=== PATIENT | male | born 1975 | race Caucasian/White ===

== ENCOUNTER 2022-01-26 11:51 | Emergency (ER) | payer OTHER ==
[2022-01-26 12:52] LABS: Absolute Lymphocytes (CBC) 1.4 K/uL (0.7-4.9); Lymphocytes % 22.2 % (15.3-44.8); MCV 89.7 fL (80-100); MPV 8.5 fL (7.6-11.3); RBC Red Blood Cell Count 5.35 M/uL (4.33-5.43)
[2022-01-26 13:11] LABS: Potassium 3.6 mmol/L (3.5-5.1); Troponin High Sensitivity 5.1 pg/mL (<58.9)
[2022-01-26 13:28] LABS: SARS-COV-2 RT PCR NEGATIVE (NEGATIVE)
--- NOTE | 2022-01-26 13:34 | RAD REPORT ---
EXAM DESCRIPTION: RAD - Chest Single View - 01/26/2022 1:14 pm CLINICAL HISTORY: CHEST PAIN COMPARISON: CHEST PA AND LAT 2 VIEW dated 09/17/2008 FINDINGS: Lines: None. Lungs: No evidence of edema or pneumonia. Pleural: No significant pleural effusions or pneumothorax. Cardiac: The heart size is within normal limits. Mediastinum: Within normal limits. Bones: No acute fractures. Other: None IMPRESSION: No acute cardiopulmonary disease.
--- NOTE | 2022-01-26 16:45 | ER ---
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 12:15 Coronavirus screen: Vaccine status: Patient reports receiving the 2nd dose of the covid kb3 vaccine. Client denies travel out of the [place] in the last 14 days. Ebola Screen: Patient negative for fever greater than or equal to 101.5 degrees Fahrenheit, and additional compatible Ebola Virus Disease symptoms Patient denies exposure to infectious person. Patient denies travel to an Ebola-affected area in the 21 days before illness onset. Initial Sepsis Screen: Does the patient meet any 2 criteria? No. Patient's initial sepsis screen is negative. Does the patient have a suspected source of infection? No. Patient's initial sepsis screen is negative. Risk Assessment: Do you want to hurt yourself or someone else? Patient reports no desire to harm self or others. Onset of symptoms was January 26, 2022 at 11:45. 12:15 Method Of Arrival: Ambulatory kb3 12:15 Acuity: WAYNE 3 kb3 Triage Assessment: 12:31 General: Appears in no apparent distress. Behavior is calm, cooperative. Pain: kb3 Complains of pain in anterior aspect of left upper chest and left breast Pain does not radiate. Pain currently is 5 out of 10 on a pain scale. Quality of pain is described as pressure. Historical: - Allergies: 14:16 No Known Allergies; hb - Home Meds: 12:31 Unable to obtain [Active]; kb3 - PMHx: 12:31 Hypercholesterolemia; kb3 - PSHx: 12:31 None; kb3 - Immunization history:: Adult Immunizations up to date, Client reports receiving the 2nd dose of the Covid vaccine, Last tetanus immunization: up to date. - Social history:: Smoking status: Patient denies any tobacco usage or history of. Patient uses. Screenin:21 Abuse screen: Denies threats or abuse. Denies injuries from another. Nutritional hb screening: No deficits noted. Tuberculosis screening: No symptoms or risk factors identified. Fall Risk None identified. Assessment: 12:21 General: Appears in no apparent distress. Behavior is calm, cooperative. Pain: Pain hb currently is 3 out of 10 on a pain scale. at worst was 9 out of 10 on a pain scale. Neuro: Level of Consciousness is awake, alert, obeys commands, Oriented to person, place, time, situation. Cardiovascular: Patient's skin is warm and dry. Rhythm is sinus tachycardia. Respiratory: Respiratory effort is even, unlabored, Respiratory pattern is regular, symmetrical. GI: No signs and/or symptoms were reported involving the gastrointestinal system. : No signs and/or symptoms were reported regarding the genitourinary system. EENT: No signs and/or symptoms were reported regarding the EENT system. Derm: Skin is pink, warm \T\ dry. Musculoskeletal: No signs and/or symptoms reported regarding the musculoskeletal system. 13:18 Reassessment: Patient appears in no apparent distress at this time. Patient and/or hb family updated on plan of care and expected duration. Pain level reassessed. Patient is alert, oriented x 3, equal unlabored respirations, skin warm/dry/pink. 14:15 Reassessment: Patient appears in no apparent distress at this time. Patient and/or hb family updated on plan of care and expected duration. Pain level reassessed. Patient is alert, oriented x 3, equal unlabored respirations, skin warm/dry/pink. 15:31 Reassessment: Patient appears in no apparent distress at this time. Patient and/or hb family updated on plan of care and expected duration. Pain level reassessed. Patient is alert, oriented x 3, equal unlabored respirations, skin warm/dry/pink. 16:40 Reassessment: Patient appears in no apparent distress at this time. Patient and/or hb family updated on plan of care and expected duration. Pain level reassessed. Patient is alert, oriented x 3, equal unlabored respirations, skin warm/dry/pink. Patient states feeling better. Patient states symptoms have improved. Vital Signs: 12:15 BP 170 / 101; Pulse 103; Resp 20; Pulse Ox 98% ; Weight 108.86 kg; Height 5 ft. 11 in. kb3 (180.34 cm); Pain 5/10; 13:18 BP 133 / 86; Pulse 109; Resp 17; Pulse Ox 99% on R/A; hb 14:15 BP 134 / 88; Pulse 66; Resp 15; Pulse Ox 100% on R/A; Pain 2/10; hb 15:31 BP 142 / 96; Pulse 93; Resp 17; Pulse Ox 100% on R/A; Pain 3/10; hb 16:40 BP 136 / 86; Pulse 89; Resp 15; Pulse Ox 99% on R/A; hb 12:15 Body Mass Index 33.47 (108.86 kg, 180.34 cm) kb3 ED Course: 11:52 Patient arrived in ED. as 11:58 Stanislav Tierney PA is PHCP. m 11:58 Say Leary DO is Attending Physician. jmm 12:13 Stephanie Rice, RN is Primary Nurse. hb 12:21 Patient has correct armband on for positive identification. Client placed on continuous hb cardiac and pulse oximetry monitoring. NIBP monitoring applied. 12:21 Patient maintains SpO2 saturation greater than 95% on room air. hb 12:31 Triage completed. kb3 12:31 Arm band placed on right wrist. Patient placed in an exam room, on a stretcher. kb3 12:47 Initial lab(s) drawn, by me, sent to lab. Inserted saline lock: 20 gauge in right em1 forearm, using aseptic technique. Blood collected. 13:16 XRAY Chest (1 view) In Process Unspecified. EDMS 16:44 Ezra Ken MD is Referral Physician. jmm 17:05 No provider procedures requiring assistance completed. IV discontinued, intact, hb bleeding controlled, No redness/swelling at site. Administered Medications: No medications were administered Medication: 12:21 VIS not applicable for this client. hb Outcome: 16:44 Discharge ordered by . jmm 17:05 Discharged to home ambulatory. hb 17:05 Condition: stable 17:05 Discharge instructions given to patient, Instructed on discharge instructions, follow up and referral plans. medication usage, Demonstrated understanding of instructions, follow-up care, medications. 17:05 Patient left the ED. hb Signatures: Dispatcher [employer] EDMS Stanislav Tierney PA PA Candy Rogers Eric em1 Stephanie Rice, DANIEL RN Moise, Denisha, RN RN kb3
--- NOTE | 2022-01-26 16:45 | EDPHYS ---
Physician Documentation [facility] Name: Matt Xie Age: 46 yrs Sex: Male : 1975 Arrival Date: 01/26/2022 Time: 11:52 Bed 4 Private MD: ED Physician Say Leary HPI: 01/26 12:23 This 46 yrs old Male presents to ER via Ambulatory with complaints of Chest Tightness, jmm High Blood Pressure. 12:23 The patient or guardian reports chest pain that is located primarily in the substernal [facility] area. Onset: acutely, 30 minute(s) ago. The pain radiates to the left arm. Associated signs and symptoms: Pertinent negatives: shortness of breath. The chest pain is described as aching, tightness. The patient has not experienced similar symptoms in the past. This is a 46 year old male with a history of hlp that presents to the ED with complaints of substernal chest pain beginning approx 30 minutes prior to arrival. Pain radiates into his left arm. Denies previous episode. . Historical: - Allergies: 14:16 No Known Allergies; hb - Home Meds: 12:31 Unable to obtain [Active]; kb3 - PMHx: 12:31 Hypercholesterolemia; kb3 - PSHx: 12:31 None; kb3 - Immunization history:: Adult Immunizations up to date, Client reports receiving the 2nd dose of the Covid vaccine, Last tetanus immunization: up to date. - Social history:: Smoking status: Patient denies any tobacco usage or history of. Patient uses. ROS: 12:23 Constitutional: Negative for fever, chills, and weight loss. jmm 12:23 Cardiovascular: Positive for chest pain. 12:23 All other systems are negative. Exam: 12:23 Constitutional: This is a well developed, well nourished patient who is awake, alert, jmm and in no acute distress. Head/Face: atraumatic. Eyes: EOMI, no conjunctival erythema appreciated ENT: Moist Mucus Membranes Neck: Trachea midline, Supple Chest/axilla: Normal chest wall appearance and motion. Cardiovascular: Regular rate and rhythm. No edema appreciated Respiratory: Normal respirations, no respiratory distress appreciated Abdomen/GI: Non distended Back: Normal ROM Skin: General appearance color normal MS/ Extremity: Moves all extremities, no obvious deformities appreciated, no edema noted to the lower extremities Neuro: Awake and alert Psych: Behavior is normal, Mood is normal, Patient is cooperative and pleasant Vital Signs: 12:15 BP 170 / 101; Pulse 103; Resp 20; Pulse Ox 98% ; Weight 108.86 kg; Height 5 ft. 11 in. kb3 (180.34 cm); Pain 5/10; 13:18 BP 133 / 86; Pulse 109; Resp 17; Pulse Ox 99% on R/A; hb 14:15 BP 134 / 88; Pulse 66; Resp 15; Pulse Ox 100% on R/A; Pain 2/10; hb 15:31 BP 142 / 96; Pulse 93; Resp 17; Pulse Ox 100% on R/A; Pain 3/10; hb 16:40 BP 136 / 86; Pulse 89; Resp 15; Pulse Ox 99% on R/A; hb 12:15 Body Mass Index 33.47 (108.86 kg, 180.34 cm) kb3 MDM: 12:23 Patient medically screened. clara 16:42 Data reviewed: vital signs, nurses notes. Counseling: I had a detailed discussion with rasta the patient and/or guardian regarding: the historical points, exam findings, and any diagnostic results supporting the discharge/admit diagnosis, the need for outpatient follow up, to return to the emergency department if symptoms worsen or persist or if there are any questions or concerns that arise at home. 16:44 ED course: Pain has resolved in the ED. Advised to follow up with . rasta 19:51 ED course: PERC score negative. Patient advised to follow-up with cardiology for [facility] further evaluation otherwise given strict return precautions. Pain is gone on discharge.. 01/26 12:23 Order name: Basic Metabolic Panel; Complete Time: 13:22 [facility] 01/26 12:23 Order name: CBC with Diff; Complete Time: 13:05 [facility] 01/26 12:23 Order name: Troponin HS; Complete Time: 13:22 [facility] 01/26 12:23 Order name: XRAY Chest (1 view); Complete Time: 13:36 [facility] 01/26 12:23 Order name: COVID-19/FLU A+B; Complete Time: 13:31 [facility] 01/26 16:04 Order name: Troponin High Sensitivity; Complete Time: 16:38 [facility] 01/26 12:23 Order name: EKG; Complete Time: 12:30 [facility] 01/26 12:23 Order name: Cardiac monitoring; Complete Time: 12:24 [facility] 01/26 12:23 Order name: EKG - Nurse/Tech; Complete Time: 12:24 [facility] 01/26 12:23 Order name: IV Saline Lock; Complete Time: 12:46 [facility] 01/26 12:23 Order name: Labs collected and sent; Complete Time: 12:47 [facility] 01/26 12:23 Order name: O2 Per Protocol; Complete Time: 12:24 [facility] 01/26 12:23 Order name: O2 Sat Monitoring; Complete Time: 12:24 [facility] Administered Medications: No medications were administered Disposition: 17:21 Co-signature as Attending Physician, Say Leary DO I was immediately available on-site ms3 in the Emergency Department for consultation in the care of the patient. Disposition Summary: 01/26/22 16:44 Discharge Ordered Location: Home jm Condition: Stable jm Diagnosis - Chest pain, unspecified jmm Followup: jmm - With: Private Physician - When: 2 - 3 days - Reason: Recheck today's complaints, Continuance of care, Re-evaluation by your physician Followup: [facility] - With: Ezra Ken MD - When: 2 - 3 days - Reason: Recheck today's complaints, Continuance of care, Re-evaluation by your physician Discharge Instructions: - Discharge Summary Sheet jmm - Nonspecific Chest Pain, Adult jmm Forms: - Medication Reconciliation Form [facility] - Thank You Letter jmm - Antibiotic Education jmm - Prescription Opioid Use [facility] Signatures: Dispatcher [employer] EDStanislav Rogers PA PA jmm Stephanie Rice, RN RN Say Iglesias DO DO ms3 Denisha Phipps, RN RN kb3
[2022-01-26 17:35] VITALS: BP 136/86; O2SAT 99
--- NOTE | 2022-01-28 12:53 | EKG ---
Test Date: 2022-01-26 Test Time: 12:17:17 [employer] System Operator: HB MEASUREMENT RESULTS: Intervals: Rate: 99 SD: 176 QRSD: 90 QT: 338 QTc: 433 [place]: P: 48 SD: 176 QRS: 30 T: 33 INTERPRETIVE STATEMENTS: Normal sinus rhythm with sinus arrhythmia Possible Left atrial enlargement Borderline ECG Compared to ECG 09/16/2008 21:05:01 No significant changes Electronically Signed On 01-28-22 12:50:15 INTERNAL CONTROL MANAGER by Ezra Ken
== END 2022-01-26 17:05 | disposition home or self-care (01) ==
LOC: ER 11:51
DX: R07.89 Other chest pain (principal); Z20.822 Contact with and (suspected) exposure to COVID-19; E78.00 Pure hypercholesterolemia, unspecified
CPT/HCPCS: 93005; 85025; 80048; 36415; 84484 ×2; 0240U; 71045; 99285